=== PATIENT | male | born 1945 | race Caucasian/White ===

== ENCOUNTER 2019-07-09 13:30 | Emergency (ER) | payer SELFPAY ==
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
[2019-07-09 13:54] LABS: BASOPHILS % 0.5 % (0.0-1.5); NEUTROPHILS # 4.9 # k/uL (1.4-7.7)
[2019-07-09 14:12] LABS: eGFR (Non-African) 57
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
[2019-07-09] MEDS ORDERED: IBUPROFEN 800 MG TABLET PO ONE (16:22)
[2019-07-09] MEDS ORDERED: CYCLOBENZAPRINE HCL 10 MG TABLET PO ONE (16:22)
[2019-07-09 16:40] VITALS: BP 152/94
== END 2019-07-09 16:39 | disposition home or self-care (01) ==
LOC: ED 13:30
DX: S50.812A Abrasion of left forearm, initial encounter (principal); S00.03XA Contusion of scalp, initial encounter; S00.83XA Contusion of other part of head, initial encounter; S00.512A Abrasion of oral cavity, initial encounter; S00.411A Abrasion of right ear, initial encounter; V49.40XA Driver injured in collision with unspecified motor vehicles in traffic accident, initial encounter
CPT/HCPCS: 70450; 70486; 71260; 73090; 74177; 80053; 85025; 99283; Q9967